=== PATIENT | female | born 1955 | race Caucasian/White ===

== ENCOUNTER 2019-02-14 09:31 | Emergency (ER) | payer BC ==
--- NOTE | 2019-02-14 11:42 | UC ---
Skin Complaint HPI - HPI Summary HPI Summary: Pt presents to for evaluatin of cellulilitis right popliteal fossa. pt states 1 week had an area of itching - thought was bug bite. PT states was very itchy. Pt states progressively became red. Mild pain. Pt used hydrocortisone cream - little improvement. pt does not have a pcp. Pt is on no meds. no tobacco. 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 No meds - History of Current Complaint Chief Complaint: UCSkin Time Seen by Provider: 02/14/19 11:34 Stated Complaint: SKIN ISSUE Hx Obtained From: Patient Pain Intensity: 0 - Allergy/Home Medications Allergies/Adverse Reactions: Allergies Allergy/AdvReac Type Severity Reaction Status Date / Time No Known Allergies Allergy Verified 02/14/19 11:55 Home Medications: Home Medications Calcium Carbonate [Calcium] 1 tab PO DAILY 02/14/19 [History Confirmed 02/14/19] Multivitamin [Multivitamins] 1 tab PO DAILY 02/14/19 [History Confirmed 02/14/19 ] PMH/Surg Hx/FS Hx/Imm Hx Previously Healthy: Yes - no pcp - no known hx - Surgical History Surgical History: Yes Surgery Procedure, Year, and Place: cyst removed - Family History Known Family History: Positive: Non-Contributory - Social History Occupation: Employed Full-time Lives: With Family Alcohol Use: Occasionally Substance Use Type: None Smoking Status (MU): Heavy Every Day Tobacco Smoker Review of Systems All Other Systems Reviewed And Are Negative: Yes Skin: Positive: Other - right popliteal fossa Is Patient Immunocompromised?: No Physical Exam - Summary Physical Exam Summary: Vital Signs Reviewed: Yes A+Ox3, anxious - reports disliking "all doctors and medical places" Eyes: Conjunctiva Clear, ABBEY. EOM intact and full ENT: Hearing grossly normal TM x 2 clear, turbinates mmoist, uvula midline, no exudate, no erythema Neck: Positive: Supple Respiratory: Positive: No respiratory distress, No accessory muscle use + CTA throughout no w/r Cardiovascular: RRR, tachycardia 101 on exam, nl s1, s2 no m/r CBT <2 sec abd soft + BS nt/nd no guarding, no distension Musculoskeletal Exam: SPRING x 4 without difficulty Strength Intact, ROM Intact Neurological: Positive: Alert, + sensation throughout Psychological: Positive: Normal Response To examiner Skin: Positive: right popliteal fossa pt with 3x4cm area of erythema, warmth. skin intact. well demarcated. mild TTP lateral margin indurated no fluctucance Triage Information Reviewed: Yes Vital Signs: Initial Vital Signs Temp 98 F 02/14/19 10:58 Pulse 120 02/14/19 10:58 Resp 18 02/14/19 10:58 BP 162/101 02/14/19 10:58 Pulse Ox 100 02/14/19 10:58 Re-Evaluation - Re-Evaluation First Eval Comment: reviewed ultrasound with pt. HR improved <100. reviewed BP with pt - provided physician referral center contact altough pt declined asssistance with PCP. strict return precuations. doxy. decliend work note Course/Dx - Course Course Of Treatment: pt presents for evaluation of cellulitis right popliteal fossa progressive x 1 week Pt anxious at time of eval - states complete dislike of medical centers Pt does not have a PCP - refuses offers for asisstance with follow-up will check ultrasound as lateral aspect indurated anticipate doxy pt agreement with plan and agree to wait for US but states "I really need to get out of here soon" comfort measures offered, pt declined - Diagnoses Provider Diagnosis: Cellulitis Discharge ED - Sign-Out/Discharge Documenting (check all that apply): Patient Departure All imaging exams completed and their final reports reviewed: No Studies - Discharge Plan Condition: Stable Disposition: HOME Prescriptions: DOXYcycline CAP(*) [DOXYcycline 100MG CAP(*)] 100 mg PO BID #20 cap Patient Education Materials: Cellulitis (ED) [place] [facility] [facility] [Outside] No Primary Care Phys,NOPCP [Primary Care Provider] - Additional Instructions: - take antibiotics 2 times a day as prescribed - keep wound cover and protected under your clothing - it is recommended you use the non-stick dressing - monitor your wound for worsening infection - increased reddness, red streaking , pain, fever, chills - if there is concern for increased infection you should go immediately to the emergency department - you have been given the contact information for the physician referral center - okay to call for assistance with establishing with a primary care doctor - Billing Disposition and Condition Condition: STABLE Disposition: Home
== END 2019-02-14 13:11 | disposition home or self-care (01) ==
LOC: UCEAST 09:31
DX: L03.115 Cellulitis of right lower limb (principal); F17.290 Nicotine dependence, other tobacco product, uncomplicated
CPT/HCPCS: 99202; G0463

== ENCOUNTER 2020-12-19 01:54 | Inpatient (IN) ==
[2020-12-19] MEDS ORDERED: LORazepam 2 mg VIAL 1 ml IV PUSH ONE (02:41)
[2020-12-19] MEDS ORDERED: Lorazepam PYXIS KEY PRN ×2 (02:41→14:06)
[2020-12-19] MEDS ORDERED: LORazepam 2 mg VIAL 1 ml ONE (02:41)
[2020-12-19 02:48] LABS: Hematocrit 38 % (35-47); Hemoglobin 13.1 g/dL (12.0-16.0); Mean Corpuscular HGB Conc 35 g/dL (31-36); Mean Corpuscular Hemoglobin 34 pg (27-31); Mean Corpuscular Volume 99 fL (80-97); Mean Platelet Volume 7.8 fL (7.4-10.4); Platelet Count 148 10^3/uL (150-450); Red Cell Distribution Width 13 % (10-15); White Blood Count 16.2 10^3/uL (3.5-10.8)
[2020-12-19 03:08] LABS: ALT 93 U/L (7-52); AST 89 U/L (13-39); Albumin 3.4 g/dL (3.2-5.2); Albumin/Globulin Ratio 1.2 (1-3); Alkaline Phosphatase 102 U/L (35-149); Blood Urea Nitrogen 15 mg/dL (6-24); C Reactive Protein 343.59 mg/L (<8.01); CO2 Carbon Dioxide 15 mmol/L (22-32); Calcium 6.5 mg/dL (8.6-10.3); Chloride 82 mmol/L (101-111); EGFR African American 98.4 (>60); EGFR Non-African American 81.3 (>60); Globulin 2.8 g/dL (2-4); Glucose 338 mg/dL (70-100); Lipase 362 U/L (11.0-82.0); Potassium 4.3 mmol/L (3.5-5.0); Total Protein 6.2 g/dL (6.4-8.9)
[2020-12-19 03:15] LABS: ABS Basophils 0.1 10^3/ul (0-0.2); ABS Lymphocytes 0.4 10^3/ul (1.0-4.8); ABS Neutrophils 14.7 10^3/ul (1.5-7.7); Lymphocyte % 2.5 %; Nucleated Red Blood Cells % 0.1
[2020-12-19 03:19] LABS: Anion Gap 13 mmol/L (2-11); Sodium 110 mmol/L (135-145); Troponin I 0.03 ng/mL (<0.03)
[2020-12-19] MEDS ORDERED: NS 0.9% 1000 ml BAG 2,000 ML IV ONE (03:22)
[2020-12-19 03:37] LABS: Rapid COVID-19 Molecular Undetected (Undetected)
[2020-12-19 03:48] LABS: Alcohol, S 198 mg/dL (<13)
[2020-12-19] MEDS ORDERED: Iohexol 300 (CONTRAST) 10 ML SDV IV ONE (05:50)
[2020-12-19] MEDS ORDERED: Piperacillin/Tazobac ADVAN 3.375 GM in NS 0.9% 100 ml BAG 100 ML IVPB ONE (07:42)
[2020-12-19 08:47] LABS: Blood Urea Nitrogen 16 mg/dL (6-24); CO2 Carbon Dioxide 15 mmol/L (22-32); Chloride 84 mmol/L (101-111); EGFR African American 112.7 (>60); EGFR Non-African American 93.1 (>60); Glucose 278 mg/dL (70-100)
[2020-12-19] MEDS ORDERED: Thiamine 100 MG/ML 2 ml VIAL (200 mg) IM ONE (08:53)
[2020-12-19 09:08] LABS: Anion Gap 13 mmol/L (2-11); Sodium 112 mmol/L (135-145)
[2020-12-19 09:22] LABS: Cholesterol 110 mg/dL; HDL Cholesterol 53.2 mg/dL; LDL Cholesterol 32 mg/dL; Triglycerides 124 mg/dL
[2020-12-19 09:35] LABS: Magnesium 2.2 mg/dL (1.9-2.7)
[2020-12-19 09:45] LABS: Troponin I 0.15 ng/mL (<0.03)
[2020-12-19] MEDS ORDERED: Levalbuterol HFA INHALER MDI INH SCH (10:00)
[2020-12-19] MEDS: Nicotine PATCH 21 MG/24 HR PATCH TRANSDERM SCH (10:13)
[2020-12-19] MEDS: Enoxaparin 40 MG/0.4 ML SYR SUBCUT SCH (10:14)
[2020-12-19] MEDS ORDERED: Levalbuterol HFA INHALER MDI INH PRN (10:46)
[2020-12-19] MEDS: Lactated Ringers 1000 ml BAG 1,000 ML IV SCH (11:21)
[2020-12-19] MEDS: Multivitamins/Minerals TAB PO SCH (11:54)
[2020-12-19] MEDS ORDERED: Calcium Gluconate 2 GM in NS 0.9% 100 ml BAG 100 ML IV ONE (11:54)
[2020-12-19] MEDS: Thiamine 100 MG/ML 2 ml VIAL 250 MG in NS 0.9% 100 ml BAG 100 ML IV SCH (12:49)
[2020-12-19 13:14] LABS: Blood Urea Nitrogen 17 mg/dL (6-24); CO2 Carbon Dioxide 20 mmol/L (22-32); Chloride 84 mmol/L (101-111); EGFR African American 103.3 (>60); EGFR Non-African American 85.4 (>60); Glucose 246 mg/dL (70-100); Magnesium 2.2 mg/dL (1.9-2.7); Phosphorus 1.5 mg/dL (2.5-5.0); Potassium 3.9 mmol/L (3.5-5.0)
[2020-12-19 13:16] LABS: Anion Gap 11 mmol/L (2-11); Calcium 6.1 mg/dL (8.6-10.3); Sodium 115 mmol/L (135-145); Troponin I 0.07 ng/mL (<0.03)
[2020-12-19] MEDS ORDERED: Potassium Phosphate IV 15 MMOLE in NS 0.9% 250 ml 250 ML IVPB ONE (13:18)
[2020-12-19] MEDS ORDERED: D5W 500 ml BAG 500 ML IV SCH ×2 (14:00→19:00)
[2020-12-19] MEDS ORDERED: Heparin 5000 UNITS/ML 1 mL VIAL SUBCUT SCH (14:00)
[2020-12-19] MEDS ORDERED: LORazepam 2 mg VIAL 1 ml IV PUSH PRN (14:06)
[2020-12-19 17:57] LABS: CO2 Carbon Dioxide 16 mmol/L (22-32); Chloride 85 mmol/L (101-111); Magnesium 2.1 mg/dL (1.9-2.7)
[2020-12-19] MEDS ORDERED: LORazepam 2 mg VIAL 1 ml IV PUSH SCH (18:00)
[2020-12-19 18:01] LABS: INR 1.22 (0.86-1.15)
[2020-12-19 18:02] LABS: Blood Urea Nitrogen 16 mg/dL (6-24); EGFR African American 140.1 (>60); EGFR Non-African American 115.8 (>60); Glucose 235 mg/dL (70-100)
[2020-12-19 18:17] LABS: Anion Gap 17 mmol/L (2-11); Calcium 6.3 mg/dL (8.6-10.3); Sodium 118 mmol/L (135-145)
[2020-12-19] MEDS ORDERED: Lactated Ringers 1000 ml BAG 1,000 ML IV SCH (19:00)
[2020-12-19 19:08] LABS: PCO2 Arterial 41 mmHg (35-45); PO2 Arterial 70 mmHg (80-100)
[2020-12-19 19:19] LABS: PCO2 Arterial 32 mmHg (35-45); PO2 Arterial 89 mmHg (80-100)
[2020-12-19] MEDS: LORazepam 2 mg VIAL 1 ml IV PUSH SCH (19:40)
[2020-12-19 20:36] LABS: TSH Ultra Thyroid Stim Horm 1.02 mcIU/mL (0.34-5.60)
[2020-12-19] MEDS ORDERED: Dexmedetomidine 1,000 MCG in NS 0.9% 250 ml 240 ML IV SCH (21:00)
[2020-12-19 21:28] LABS: Magnesium 2.1 mg/dL (1.9-2.7); Phosphorus 1.7 mg/dL (2.5-5.0); Potassium Redraw 4.5 mmol/L (3.5-5.0)
[2020-12-19 23:43] LABS: Urine Appearance Cloudy; Urine Bilirubin Negative (Negative); Urine Blood 3+ (Negative); Urine Color Yellow; Urine Glucose 3+(>=500 mg/dL) (Negative); Urine Ketones 1+ (Negative); Urine Nitrite Negative (Negative); Urine Protein 2+(100 mg/dL) (Negative); Urine Specific Gravity 1.025 (1.002-1.030); Urine Urobilinogen Negative (Negative)
[2020-12-19 23:47] LABS: Urine Bacteria Absent (Absent); Urine Red Blood Cell 3+(>10/hpf) (Absent); Urine White Blood Cell Trace(0-5/hpf) (Absent)
[2020-12-19 23:48] LABS: Urine Creatinine Concentration 46.22 mg/dL; Urine Sodium Concentration < 18 mmol/L
[2020-12-19 23:50] LABS: Urine Benzodiazepine Screen None Detected (None Detect); Urine Cannabinoids Screen None Detected (None Detect); Urine Opiates Screen None Detected (None Detect)
[2020-12-20] MEDS ORDERED: Insulin GLARGINE 100 un/ml 10 ml VIAL SUBCUT ONE (00:28)
[2020-12-20 01:51] LABS: Hematocrit 29 % (35-47); Hemoglobin 10.1 g/dL (12.0-16.0); Mean Corpuscular HGB Conc 35 g/dL (31-36); Mean Corpuscular Hemoglobin 35 pg (27-31); Mean Corpuscular Volume 99 fL (80-97); Mean Platelet Volume 7.6 fL (7.4-10.4); Platelet Count 135 10^3/uL (150-450); Red Blood Count 2.93 10^6 /uL (3.70-4.87); Red Cell Distribution Width 13 % (10-15); White Blood Count 10.1 10^3/uL (3.5-10.8)
[2020-12-20 01:55] LABS: INR 1.25 (0.86-1.15)
[2020-12-20 02:09] LABS: Albumin 2.8 g/dL (3.2-5.2); Albumin/Globulin Ratio 1.2 (1-3); Direct Bilirubin 0.4 mg/dL (0.03-0.18); EGFR African American 143.2 (>60); EGFR Non-African American 118.3 (>60); Globulin 2.3 g/dL (2-4); Indirect Bilirubin 0.4 mg/dL (0.3-1.0); Magnesium 2.1 mg/dL (1.9-2.7); Potassium 4.1 mmol/L (3.5-5.0); Total Bilirubin 0.8 mg/dL (0.2-1.0); Total Protein 5.1 g/dL (6.4-8.9)
[2020-12-20 02:35] LABS: Calcium 5.7 mg/dL (8.6-10.3)
[2020-12-20] MEDS: LORazepam 2 mg VIAL 1 ml IV PUSH SCH (03:40)
[2020-12-20] MEDS ORDERED: LORazepam 2 mg VIAL 1 ml IM SCH (04:00)
[2020-12-20] MEDS: Lactated Ringers 1000 ml BAG 1,000 ML IV SCH (04:13)
[2020-12-20] MEDS ORDERED: Dextrose 50% Syringe 50 ml 25 GM/50 ML SYRINGE IV PUSH PRN (06:16)
[2020-12-20] MEDS: Multivitamins/Minerals TAB PO SCH (07:13)
[2020-12-20] MEDS: Enoxaparin 40 MG/0.4 ML SYR SUBCUT SCH (07:17)
[2020-12-20] MEDS: Nicotine PATCH 21 MG/24 HR PATCH TRANSDERM SCH (07:17)
[2020-12-20 07:40] LABS: EGFR African American 169.2 (>60); EGFR Non-African American 139.8 (>60); Potassium 3.9 mmol/L (3.5-5.0)
[2020-12-20 07:42] LABS: Calcium 5.7 mg/dL (8.6-10.3)
[2020-12-20] MEDS ORDERED: Lactated Ringers 1000 ml BAG 1,000 ML IV SCH (07:44)
[2020-12-20 10:52] LABS: C Reactive Protein 275.52 mg/L (<8.01)
[2020-12-20] MEDS: Thiamine 100 MG/ML 2 ml VIAL 250 MG in NS 0.9% 100 ml BAG 100 ML IV SCH (15:49)
[2020-12-20] MEDS ORDERED: Buffered Lidocaine 1% SYRIN 1 ml INTRADERM ONE (16:39)
[2020-12-20 17:24] LABS: EGFR African American 153.4 (>60); EGFR Non-African American 126.7 (>60); Potassium 3.8 mmol/L (3.5-5.0)
[2020-12-20 17:26] LABS: Calcium 5.8 mg/dL (8.6-10.3)
[2020-12-20] MEDS ORDERED: D5W 1000 ml BAG 1,000 ML IV SCH (18:00)
[2020-12-20 18:39] LABS: EGFR African American 157.1 (>60); EGFR Non-African American 129.8 (>60)
[2020-12-20 18:41] LABS: Calcium 5.5 mg/dL (8.6-10.3)
[2020-12-20 23:18] LABS: EGFR African American 153.4 (>60); EGFR Non-African American 126.7 (>60); Potassium 3.4 mmol/L (3.5-5.0)
[2020-12-20 23:47] LABS: Calcium 5.7 mg/dL (8.6-10.3)
[2020-12-21] MEDS: KCL 20 MEQ/100 ML IVPREMIX 20 MEQ/100 ML BAG IV SCH ×2 (01:01→04:32)
[2020-12-21] MEDS: LORazepam 2 mg VIAL 1 ml IV PUSH SCH ×4 (03:50→22:49)
[2020-12-21] MEDS ORDERED: Albuterol 2.5mg/3 ml (0.083%) NEB.SOLN INH ONE (05:45)
[2020-12-21 05:52] LABS: Hematocrit 34 % (35-47); Hemoglobin 11.6 g/dL (12.0-16.0); Mean Corpuscular HGB Conc 34 g/dL (31-36); Mean Corpuscular Hemoglobin 34 pg (27-31); Mean Corpuscular Volume 100 fL (80-97); Mean Platelet Volume 7.5 fL (7.4-10.4); Platelet Count 159 10^3/uL (150-450); Red Blood Count 3.45 10^6 /uL (3.70-4.87); Red Cell Distribution Width 13 % (10-15); White Blood Count 13.3 10^3/uL (3.5-10.8)
[2020-12-21 06:11] LABS: PCO2 Arterial 48 mmHg (35-45); PO2 Arterial 99 mmHg (80-100)
[2020-12-21 06:15] LABS: Magnesium 2.3 mg/dL (1.9-2.7)
[2020-12-21] MEDS: Enoxaparin 40 MG/0.4 ML SYR SUBCUT SCH (08:12)
[2020-12-21] MEDS: Nicotine PATCH 21 MG/24 HR PATCH TRANSDERM SCH (08:12)
[2020-12-21 08:27] LABS: Albumin 2.9 g/dL (3.2-5.2); Potassium 3.8 mmol/L (3.5-5.0); Total Bilirubin 0.8 mg/dL (0.2-1.0)
[2020-12-21 08:33] LABS: Albumin/Globulin Ratio 1.2 (1-3); EGFR African American 173.6 (>60); EGFR Non-African American 143.5 (>60); Globulin 2.5 g/dL (2-4); Total Protein 5.4 g/dL (6.4-8.9)
[2020-12-21] MEDS ORDERED: Lactated Ringers 1000 ml BAG 1,000 ML IV ONE ×2 (08:43→09:34)
[2020-12-21 09:11] LABS: Calcium 5.9 mg/dL (8.6-10.3)
[2020-12-21] MEDS ORDERED: Potassium Phosphate IV 15 MMOLE in NS 0.9% 250 ml 250 ML IVPB ONE (10:30)
[2020-12-21] MEDS: Thiamine 100 MG/ML 2 ml VIAL 250 MG in NS 0.9% 100 ml BAG 100 ML IV SCH (12:59)
[2020-12-21 13:01] LABS: EGFR African American 199.6 (>60); EGFR Non-African American 164.9 (>60); Potassium 3.5 mmol/L (3.5-5.0)
[2020-12-21 13:34] LABS: Calcium 5.6 mg/dL (8.6-10.3)
[2020-12-21] MEDS ORDERED: Lactated Ringers 1000 ml BAG 1,000 ML IV SCH ×2 (16:00→18:41)
[2020-12-21 18:37] LABS: EGFR African American 212.1 (>60); EGFR Non-African American 175.3 (>60); Potassium 3.5 mmol/L (3.5-5.0)
[2020-12-21 19:04] LABS: Calcium 5.6 mg/dL (8.6-10.3)
[2020-12-21] MEDS ORDERED: D5W 500 ml BAG 500 ML IV SCH (21:00)
[2020-12-22] MEDS: LORazepam 2 mg VIAL 1 ml IV PUSH SCH (00:30)
[2020-12-22] MEDS ORDERED: D5W 500 ml BAG 500 ML IV ONE (01:11)
[2020-12-22 02:02] LABS: Blood Urea Nitrogen 8 mg/dL (6-24); CO2 Carbon Dioxide 24 mmol/L (22-32); Chloride 95 mmol/L (101-111); EGFR African American 233.8 (>60); EGFR Non-African American 193.2 (>60); Glucose 122 mg/dL (70-100); Sodium 129 mmol/L (135-145)
[2020-12-22 02:15] LABS: Calcium 5.5 mg/dL (8.6-10.3)
[2020-12-22 02:16] LABS: Anion Gap 10 mmol/L (2-11)
[2020-12-22 03:07] LABS: Phosphorus 1.1 mg/dL (2.5-5.0); Potassium Redraw 2.9 mmol/L (3.5-5.0)
[2020-12-22 04:17] LABS: Hematocrit 32 % (35-47); Hemoglobin 10.6 g/dL (12.0-16.0); Mean Corpuscular HGB Conc 33 g/dL (31-36); Mean Corpuscular Hemoglobin 34 pg (27-31); Mean Corpuscular Volume 101 fL (80-97); Mean Platelet Volume 6.9 fL (7.4-10.4); Platelet Count 231 10^3/uL (150-450); Red Blood Count 3.16 10^6 /uL (3.70-4.87); Red Cell Distribution Width 14 % (10-15); White Blood Count 16.7 10^3/uL (3.5-10.8)
[2020-12-22] MEDS ORDERED: Potassium Phosphate IV 20 MMOLE in NS 0.9% 250 ml 250 ML IVPB ONE (04:30)
[2020-12-22 05:35] LABS: Magnesium 2.2 mg/dL (1.9-2.7); Phosphorus 1.1 mg/dL (2.5-5.0)
[2020-12-22] MEDS: KCL 20 MEQ/100 ML IVPREMIX 20 MEQ/100 ML BAG IV SCH ×3 (06:23→21:45)
[2020-12-22] MEDS: Nicotine PATCH 21 MG/24 HR PATCH TRANSDERM SCH (08:52)
[2020-12-22] MEDS: Enoxaparin 40 MG/0.4 ML SYR SUBCUT SCH (08:52)
[2020-12-22 10:32] LABS: EGFR African American 199.6 (>60); EGFR Non-African American 164.9 (>60); Potassium 3.8 mmol/L (3.5-5.0)
[2020-12-22 10:48] LABS: Calcium 5.6 mg/dL (8.6-10.3)
[2020-12-22 14:38] LABS: C Reactive Protein 186.74 mg/L (<8.01)
[2020-12-22 17:49] LABS: EGFR African American 218.9 (>60); EGFR Non-African American 180.9 (>60); Potassium 3.6 mmol/L (3.5-5.0)
[2020-12-22 18:08] LABS: Calcium 5.6 mg/dL (8.6-10.3)
[2020-12-22] MEDS: Thiamine 100 MG/ML 2 ml VIAL 100 MG in NS 0.9% 50 ML 50 ML IV SCH (23:32)
[2020-12-23] MEDS: KCL 20 MEQ/100 ML IVPREMIX 20 MEQ/100 ML BAG IV SCH (00:33)
[2020-12-23 05:21] LABS: Hematocrit 29 % (35-47); Hemoglobin 9.6 g/dL (12.0-16.0); Mean Corpuscular HGB Conc 34 g/dL (31-36); Mean Corpuscular Hemoglobin 34 pg (27-31); Mean Corpuscular Volume 101 fL (80-97); Mean Platelet Volume 6.9 fL (7.4-10.4); Platelet Count 251 10^3/uL (150-450); Red Blood Count 2.85 10^6 /uL (3.70-4.87); Red Cell Distribution Width 14 % (10-15); White Blood Count 18.7 10^3/uL (3.5-10.8)
[2020-12-23 05:44] LABS: Albumin 2.3 g/dL (3.2-5.2); Albumin/Globulin Ratio 1.2 (1-3); EGFR African American 233.8 (>60); EGFR Non-African American 193.2 (>60); Potassium 3.8 mmol/L (3.5-5.0); Total Bilirubin 0.5 mg/dL (0.2-1.0); Total Protein 4.3 g/dL (6.4-8.9)
[2020-12-23 06:08] LABS: Calcium 5.7 mg/dL (8.6-10.3)
[2020-12-23] MEDS ORDERED: Potassium Phosphate IV 15 MMOLE in NS 0.9% 250 ml 250 ML IVPB ONE (06:47)
[2020-12-23 06:52] LABS: Direct Bilirubin 0.3 mg/dL (0.03-0.18); Indirect Bilirubin 0.2 mg/dL (0.3-1.0)
[2020-12-23] MEDS: Enoxaparin 40 MG/0.4 ML SYR SUBCUT SCH (07:56)
[2020-12-23] MEDS: Nicotine PATCH 21 MG/24 HR PATCH TRANSDERM SCH (07:56)
[2020-12-23] MEDS: Lactated Ringers 1000 ml BAG 1,000 ML IV SCH ×2 (10:40→20:43)
[2020-12-23] MEDS ORDERED: Iohexol 300 (CONTRAST) 10 ML SDV IV ONE (11:31)
[2020-12-23] MEDS ORDERED: Calcium Gluconate 2 GM in NS 0.9% 100 ml BAG 100 ML IV ONE (20:10)
[2020-12-23 21:22] LABS: EGFR African American 212.1 (>60); EGFR Non-African American 175.3 (>60); Potassium 3.4 mmol/L (3.5-5.0)
[2020-12-23 21:48] LABS: Calcium 5.8 mg/dL (8.6-10.3)
[2020-12-23] MEDS: Thiamine 100 MG/ML 2 ml VIAL 100 MG in NS 0.9% 50 ML 50 ML IV SCH (22:29)
[2020-12-23 23:29] LABS: Phosphorus 1.3 mg/dL (2.5-5.0)
[2020-12-24] MEDS ORDERED: Potassium Phosphate IV 15 MMOLE in NS 0.9% 250 ml 250 ML IVPB ONE ×2 (02:35→09:42)
[2020-12-24] MEDS: Lactated Ringers 1000 ml BAG 1,000 ML IV SCH ×3 (05:02→23:02)
[2020-12-24 06:45] LABS: Hematocrit 29 % (35-47); Hemoglobin 9.8 g/dL (12.0-16.0); Mean Corpuscular HGB Conc 34 g/dL (31-36); Mean Corpuscular Hemoglobin 34 pg (27-31); Mean Corpuscular Volume 100 fL (80-97); Mean Platelet Volume 6.9 fL (7.4-10.4); Platelet Count 264 10^3/uL (150-450); Red Blood Count 2.87 10^6 /uL (3.70-4.87); Red Cell Distribution Width 15 % (10-15); White Blood Count 20.8 10^3/uL (3.5-10.8)
[2020-12-24 06:55] LABS: Magnesium 2.1 mg/dL (1.9-2.7); Phosphorus 1.6 mg/dL (2.5-5.0)
[2020-12-24 07:24] LABS: ABS Lymphocytes 0.8 10^3/ul (1.0-4.8); ABS Monocytes 1.8 10^3/ul (0-0.8); ABS Neutrophils 18.1 10^3/ul (1.5-7.7); ABS Nucleated RBC 0.3 10^3/ul; Nucleated Red Blood Cells % 1.5
[2020-12-24 07:27] LABS: Polychromasia 1+; Toxic Granulation 1+
[2020-12-24 08:49] LABS: Albumin 2.3 g/dL (3.2-5.2); Direct Bilirubin 0.3 mg/dL (0.03-0.18); Globulin 2.2 g/dL (2-4); Indirect Bilirubin 0.2 mg/dL (0.3-1.0); Total Bilirubin 0.5 mg/dL (0.2-1.0); Total Protein 4.5 g/dL (6.4-8.9)
[2020-12-24] MEDS: Enoxaparin 40 MG/0.4 ML SYR SUBCUT SCH (08:57)
[2020-12-24] MEDS: Nicotine PATCH 21 MG/24 HR PATCH TRANSDERM SCH (08:58)
[2020-12-24 09:15] LABS: EGFR African American 233.8 (>60); EGFR Non-African American 193.2 (>60); Potassium 3.5 mmol/L (3.5-5.0)
[2020-12-24 09:41] LABS: Calcium 6.2 mg/dL (8.6-10.3)
[2020-12-24] MEDS: Thiamine 100 MG/ML 2 ml VIAL 100 MG in NS 0.9% 50 ML 50 ML IV SCH (21:16)
[2020-12-25 05:08] LABS: Hematocrit 30 % (35-47); Hemoglobin 10.1 g/dL (12.0-16.0); Mean Corpuscular HGB Conc 34 g/dL (31-36); Mean Corpuscular Hemoglobin 34 pg (27-31); Mean Corpuscular Volume 101 fL (80-97); Mean Platelet Volume 6.8 fL (7.4-10.4); Platelet Count 272 10^3/uL (150-450); Red Blood Count 2.97 10^6 /uL (3.70-4.87); Red Cell Distribution Width 14 % (10-15); White Blood Count 19.6 10^3/uL (3.5-10.8)
[2020-12-25 05:26] LABS: Calcium 6.5 mg/dL (8.6-10.3); Magnesium 2.1 mg/dL (1.9-2.7); Phosphorus 1.5 mg/dL (2.5-5.0); Potassium 3.2 mmol/L (3.5-5.0)
[2020-12-25] MEDS ORDERED: Potassium Phosphate IV 15 MMOLE in NS 0.9% 250 ml 250 ML IVPB ONE (05:42)
[2020-12-25 06:28] LABS: ABS Basophils 0.1 10^3/ul (0-0.2); ABS Lymphocytes 0.7 10^3/ul (1.0-4.8); ABS Monocytes 1.4 10^3/ul (0-0.8); ABS Neutrophils 17.4 10^3/ul (1.5-7.7); ABS Nucleated RBC 0.2 10^3/ul; Basophilic Stippling 1+; Eosinophil % 0.1 %; Lymphocyte % 3.4 %; Macrocytosis 2+; Nucleated Red Blood Cells % 0.9; Polychromasia 1+
[2020-12-25] MEDS: Nicotine PATCH 21 MG/24 HR PATCH TRANSDERM SCH (07:47)
[2020-12-25] MEDS: Enoxaparin 40 MG/0.4 ML SYR SUBCUT SCH (07:48)
[2020-12-25] MEDS: Lactated Ringers 1000 ml BAG 1,000 ML IV SCH (09:21)
[2020-12-25] MEDS: Potassium Chlor 20 meq TAB.ER PO SCH (11:03)
[2020-12-25] MEDS ORDERED: Furosemide 20 mg/2 ml IV VIAL IV ONE ×2 (11:44→20:45)
[2020-12-25] MEDS ORDERED: Lorazepam PYXIS KEY PRN (14:27)
[2020-12-25] MEDS ORDERED: LORazepam 2 mg VIAL 1 ml ONE (14:32)
[2020-12-25] MEDS: LORazepam 2 mg VIAL 1 ml IV PUSH PRN ×2 (14:38→23:40)
[2020-12-25] MEDS ORDERED: LORazepam 2 mg VIAL 1 ml IV PUSH ONE (14:58)
[2020-12-25] MEDS ORDERED: TPN 24 HR with D10W 1000 ml BAG 1,000 ML, Amino Acid Infusion 10% 850 ML, Sterile Water... IV SCH (17:00)
[2020-12-25] MEDS: TPN 24 HR with D10W 1000 ml BAG 1,000 ML, Amino Acid Infusion 10% 850 ML, Sterile Water... IV SCH (17:45)
[2020-12-25 19:10] LABS: Body Fluid Source Pleural Fluid
[2020-12-25 19:36] LABS: Body Fluid WBC 3708 /mcL
[2020-12-25 19:37] LABS: Body Fluid Appearance Cloudy; Body Fluid Color Pink
[2020-12-25 19:55] LABS: Body Fluid Mono 6 %; Body Fluid Total Cells Counted 200
[2020-12-25] MEDS: Thiamine 100 MG/ML 2 ml VIAL 100 MG in NS 0.9% 50 ML 50 ML IV SCH (22:49)
[2020-12-26 06:21] LABS: Hematocrit 31 % (35-47); Hemoglobin 10.4 g/dL (12.0-16.0); Mean Corpuscular HGB Conc 34 g/dL (31-36); Mean Corpuscular Hemoglobin 34 pg (27-31); Mean Corpuscular Volume 103 fL (80-97); Mean Platelet Volume 7.2 fL (7.4-10.4); Platelet Count 263 10^3/uL (150-450); Red Blood Count 3.01 10^6 /uL (3.70-4.87); Red Cell Distribution Width 15 % (10-15); White Blood Count 19.8 10^3/uL (3.5-10.8)
[2020-12-26 06:41] LABS: Calcium 7.3 mg/dL (8.6-10.3); EGFR African American 205.7 (>60); Magnesium 2.2 mg/dL (1.9-2.7); Potassium 3.8 mmol/L (3.5-5.0)
[2020-12-26] MEDS: Nicotine PATCH 21 MG/24 HR PATCH TRANSDERM SCH ×2 (06:44→07:37)
[2020-12-26] MEDS ORDERED: Potassium Phosphate IV 15 MMOLE in NS 0.9% 250 ml 250 ML IVPB ONE (08:10)
[2020-12-26] MEDS: Enoxaparin 40 MG/0.4 ML SYR SUBCUT SCH (08:41)
[2020-12-26] MEDS ORDERED: Furosemide 40 mg/4 ml IV VIAL IV ONE (09:27)
[2020-12-26] MEDS ORDERED: Morphine ER 15 mg TAB ** extended release PO ONE (10:22)
[2020-12-26] MEDS ORDERED: Nicotine Lozenge mini 4 MG LOZNG.MINI MT PRN (10:23)
[2020-12-26] MEDS: Morphine 2 MG/ML SYRINGE IV PRN (15:46)
[2020-12-26] MEDS ORDERED: Furosemide 20 mg/2 ml IV VIAL IV SLOW PU ONE (17:14)
[2020-12-26] MEDS ORDERED: Furosemide 40 mg/4 ml IV VIAL IV SLOW PU ONE (17:15)
[2020-12-26] MEDS: TPN 24 HR with D10W 1000 ml BAG 1,000 ML, Amino Acid Infusion 10% 850 ML, Sterile Water... IV SCH (17:50)
[2020-12-26] MEDS ORDERED: Insulin GLARGINE 100 un/ml 10 ml VIAL SUBCUT SCH (21:00)
[2020-12-27] MEDS: Thiamine 100 MG/ML 2 ml VIAL 100 MG in NS 0.9% 50 ML 50 ML IV SCH ×2 (00:35→21:26)
[2020-12-27] MEDS ORDERED: Lorazepam PYXIS KEY ONE ×2 (05:09→15:14)
[2020-12-27] MEDS: LORazepam 2 mg VIAL 1 ml IV PUSH PRN ×2 (05:14→15:18)
[2020-12-27] MEDS: Morphine 2 MG/ML SYRINGE IV PRN ×2 (05:19→16:10)
[2020-12-27 05:22] LABS: Hematocrit 30 % (35-47); Hemoglobin 9.5 g/dL (12.0-16.0); Mean Corpuscular HGB Conc 32 g/dL (31-36); Mean Corpuscular Hemoglobin 33 pg (27-31); Mean Corpuscular Volume 104 fL (80-97); Mean Platelet Volume 7.2 fL (7.4-10.4); Platelet Count 243 10^3/uL (150-450); Red Blood Count 2.87 10^6 /uL (3.70-4.87); Red Cell Distribution Width 15 % (10-15); White Blood Count 16.6 10^3/uL (3.5-10.8)
[2020-12-27 05:36] LABS: Calcium 7.5 mg/dL (8.6-10.3); EGFR African American 260.1 (>60); Magnesium 2.2 mg/dL (1.9-2.7); Phosphorus 1.2 mg/dL (2.5-5.0); Potassium 3.4 mmol/L (3.5-5.0)
[2020-12-27] MEDS ORDERED: Potassium Phosphate IV 15 MMOLE in NS 0.9% 250 ml 250 ML IVPB ONE (08:00)
[2020-12-27] MEDS: Potassium Chlor 20 meq TAB.ER PO ONE ×2 (09:22→09:27)
[2020-12-27] MEDS: Enoxaparin 40 MG/0.4 ML SYR SUBCUT SCH (09:22)
[2020-12-27] MEDS: Nicotine PATCH 21 MG/24 HR PATCH TRANSDERM SCH (09:23)
[2020-12-27] MEDS ORDERED: acetaZOLAMIDE IV 500 MG in NS 0.9% 50 ML 50 ML IVPB SCH (10:00)
[2020-12-27] MEDS ORDERED: TPN 24 HR with D10W 1000 ml BAG 1,000 ML, Amino Acid Infusion 10% 850 ML, Sterile Water... IV SCH (10:00)
[2020-12-27] MEDS: KCL 20 MEQ/100 ML IVPREMIX 20 MEQ/100 ML BAG IV SCH ×2 (11:19→13:03)
[2020-12-27] MEDS ORDERED: Enoxaparin 40 MG/0.4 ML SYR SUBCUT SCH (12:00)
[2020-12-27] MEDS ORDERED: Enoxaparin 40 MG/0.4 ML SYR SUBCUT ONE (12:12)
[2020-12-27 15:58] LABS: Lactate Dehydrogenase, BF 882 U/L
[2020-12-27] MEDS: TPN 24 HR with D10W 1000 ml BAG 1,000 ML, Amino Acid Infusion 10% 850 ML, Sterile Water... IV SCH (18:09)
[2020-12-27] MEDS ORDERED: Insulin GLARGINE 100 un/ml 10 ml VIAL SUBCUT SCH (21:00)
[2020-12-27] MEDS: Enoxaparin 80 MG/0.8 ML SYR SUBCUT SCH (21:21)
[2020-12-28] MEDS ORDERED: Lorazepam PYXIS KEY ONE (02:41)
[2020-12-28] MEDS: LORazepam 2 mg VIAL 1 ml IV PUSH PRN (02:42)
[2020-12-28] MEDS: Morphine 2 MG/ML SYRINGE IV PRN ×2 (02:43→10:35)
[2020-12-28] MEDS: Nicotine PATCH 21 MG/24 HR PATCH TRANSDERM SCH (06:28)
[2020-12-28 07:37] LABS: Hematocrit 28 % (35-47); Hemoglobin 9.4 g/dL (12.0-16.0); Mean Corpuscular HGB Conc 33 g/dL (31-36); Mean Corpuscular Hemoglobin 34 pg (27-31); Mean Corpuscular Volume 103 fL (80-97); Mean Platelet Volume 7.5 fL (7.4-10.4); Platelet Count 245 10^3/uL (150-450); Red Blood Count 2.75 10^6 /uL (3.70-4.87); Red Cell Distribution Width 15 % (10-15); White Blood Count 12.5 10^3/uL (3.5-10.8)
[2020-12-28 07:47] LABS: Calcium 7.6 mg/dL (8.6-10.3); EGFR African American 270.2 (>60); EGFR Non-African American 223.3 (>60); Magnesium 2.2 mg/dL (1.9-2.7); Phosphorus 2.7 mg/dL (2.5-5.0); Potassium 3.7 mmol/L (3.5-5.0)
[2020-12-28] MEDS: Enoxaparin 80 MG/0.8 ML SYR SUBCUT SCH ×2 (08:46→21:28)
[2020-12-28] MEDS ORDERED: Furosemide 40 mg/4 ml IV VIAL IV SLOW PU ONE (09:44)
[2020-12-28 10:03] LABS: Fluid Type, Protein, Total PLEURAL; Total Protein, BF 2.1 g/dL
[2020-12-28] MEDS: TPN 24 HR with D10W 1000 ml BAG 1,000 ML, Amino Acid Infusion 10% 850 ML, Sterile Water... IV SCH (18:18)
[2020-12-28] MEDS: Insulin GLARGINE 100 un/ml 10 ml VIAL SUBCUT SCH (21:29)
[2020-12-28] MEDS: Thiamine 100 MG/ML 2 ml VIAL 100 MG in NS 0.9% 50 ML 50 ML IV SCH (21:35)
[2020-12-29] MEDS: Morphine 2 MG/ML SYRINGE IV PRN (00:59)
[2020-12-29] MEDS: Nicotine PATCH 21 MG/24 HR PATCH TRANSDERM SCH (05:57)
[2020-12-29 06:03] LABS: Hematocrit 27 % (35-47); Hemoglobin 9.3 g/dL (12.0-16.0); Mean Corpuscular HGB Conc 34 g/dL (31-36); Mean Corpuscular Hemoglobin 34 pg (27-31); Mean Corpuscular Volume 101 fL (80-97); Mean Platelet Volume 7.7 fL (7.4-10.4); Platelet Count 248 10^3/uL (150-450); Red Cell Distribution Width 15 % (10-15); White Blood Count 10.5 10^3/uL (3.5-10.8)
[2020-12-29 06:22] LABS: Calcium 7.6 mg/dL (8.6-10.3); EGFR African American 270.2 (>60); EGFR Non-African American 223.3 (>60); Magnesium 2.2 mg/dL (1.9-2.7); Phosphorus 2.7 mg/dL (2.5-5.0)
[2020-12-29] MEDS: Enoxaparin 80 MG/0.8 ML SYR SUBCUT SCH ×2 (08:15→21:56)
[2020-12-29] MEDS ORDERED: Furosemide 40 mg/4 ml IV VIAL IV ONE (10:13)
[2020-12-29] MEDS: Sodium Chloride(INHALANT) 3% 4 ML NEB.SOLN INH PRN (10:24)
[2020-12-29] MEDS: Albuterol 2.5mg/3 ml (0.083%) NEB.SOLN INH PRN (10:24)
[2020-12-29] MEDS: TPN 24 HR with D10W 1000 ml BAG 1,000 ML, Amino Acid Infusion 10% 850 ML, Sterile Water... IV SCH (18:27)
[2020-12-29] MEDS ORDERED: Senna TAB 8.6 mg TAB PO SCH (21:00)
[2020-12-29] MEDS: Insulin GLARGINE 100 un/ml 10 ml VIAL SUBCUT SCH (21:57)
[2020-12-30] MEDS: Sodium Chloride(INHALANT) 3% 4 ML NEB.SOLN INH PRN ×3 (02:16→18:21)
[2020-12-30] MEDS: Albuterol 2.5mg/3 ml (0.083%) NEB.SOLN INH PRN ×3 (02:16→18:21)
[2020-12-30] MEDS: Nicotine PATCH 21 MG/24 HR PATCH TRANSDERM SCH (05:39)
[2020-12-30] MEDS ORDERED: Lorazepam PYXIS KEY ONE ×2 (07:05→13:35)
[2020-12-30] MEDS: Enoxaparin 80 MG/0.8 ML SYR SUBCUT SCH ×2 (07:09→19:58)
[2020-12-30] MEDS: LORazepam 2 mg VIAL 1 ml IV PUSH PRN ×2 (07:09→13:40)
[2020-12-30] MEDS ORDERED: Furosemide 40 mg/4 ml IV VIAL IV ONE (08:58)
[2020-12-30 09:11] LABS: PCO2 Arterial 46 mmHg (35-45); PO2 Arterial 129 mmHg (80-100)
[2020-12-30 11:10] LABS: Hematocrit 30 % (35-47); Mean Corpuscular HGB Conc 33 g/dL (31-36); Mean Corpuscular Hemoglobin 33 pg (27-31); Mean Corpuscular Volume 101 fL (80-97); Mean Platelet Volume 8.1 fL (7.4-10.4); Platelet Count 324 10^3/uL (150-450); Red Blood Count 3.01 10^6 /uL (3.70-4.87); Red Cell Distribution Width 15 % (10-15); White Blood Count 9.4 10^3/uL (3.5-10.8)
[2020-12-30 11:27] LABS: Calcium 7.7 mg/dL (8.6-10.3); EGFR African American 226.1 (>60); EGFR Non-African American 186.9 (>60); Phosphorus 2.9 mg/dL (2.5-5.0); Potassium 3.6 mmol/L (3.5-5.0)
[2020-12-30] MEDS ORDERED: KCL 20 MEQ/100 ML IVPREMIX 20 MEQ/100 ML BAG IV ONE (12:00)
[2020-12-30] MEDS: Morphine 2 MG/ML SYRINGE IV PRN (15:31)
[2020-12-30] MEDS: TPN 24 HR with D10W 1000 ml BAG 1,000 ML, Amino Acid Infusion 10% 850 ML, Sterile Water... IV SCH (17:09)
[2020-12-30] MEDS: Insulin GLARGINE 100 un/ml 10 ml VIAL SUBCUT SCH (19:58)
[2020-12-31] MEDS: Albuterol 2.5mg/3 ml (0.083%) NEB.SOLN INH PRN ×2 (01:18→08:59)
[2020-12-31 05:10] LABS: Hematocrit 27 % (35-47); Hemoglobin 9.3 g/dL (12.0-16.0); Mean Corpuscular HGB Conc 34 g/dL (31-36); Mean Corpuscular Hemoglobin 34 pg (27-31); Mean Corpuscular Volume 100 fL (80-97); Mean Platelet Volume 8.2 fL (7.4-10.4); Platelet Count 321 10^3/uL (150-450); Red Blood Count 2.72 10^6 /uL (3.70-4.87); Red Cell Distribution Width 15 % (10-15); White Blood Count 9.3 10^3/uL (3.5-10.8)
[2020-12-31] MEDS: Nicotine PATCH 21 MG/24 HR PATCH TRANSDERM SCH (05:23)
[2020-12-31 05:26] LABS: ABS Basophils 0.1 10^3/ul (0-0.2); ABS Lymphocytes 0.9 10^3/ul (1.0-4.8); ABS Monocytes 1.5 10^3/ul (0-0.8); ABS Neutrophils 6.8 10^3/ul (1.5-7.7); ABS Nucleated RBC 0.1 10^3/ul; Eosinophil % 0.2 %; Nucleated Red Blood Cells % 0.9
[2020-12-31 05:40] LABS: ALT 38 U/L (7-52); AST 31 U/L (13-39); Albumin 2.3 g/dL (3.2-5.2); Albumin/Globulin Ratio 0.8 (1-3); Alkaline Phosphatase 127 U/L (35-149); Anion Gap 4 mmol/L (2-11); Blood Urea Nitrogen 21 mg/dL (6-24); CO2 Carbon Dioxide 29 mmol/L (22-32); Calcium 7.6 mg/dL (8.6-10.3); Chloride 104 mmol/L (101-111); EGFR African American 270.2 (>60); EGFR Non-African American 223.3 (>60); Globulin 2.8 g/dL (2-4); Glucose 190 mg/dL (70-100); Phosphorus 3.3 mg/dL (2.5-5.0); Potassium 4.1 mmol/L (3.5-5.0); Sodium 137 mmol/L (135-145); Total Protein 5.1 g/dL (6.4-8.9)
[2020-12-31] MEDS: Enoxaparin 80 MG/0.8 ML SYR SUBCUT SCH ×2 (08:45→21:11)
[2020-12-31] MEDS: Sodium Chloride(INHALANT) 3% 4 ML NEB.SOLN INH PRN (08:59)
[2020-12-31] MEDS ORDERED: Lorazepam PYXIS KEY ONE ×3 (14:44→22:51)
[2020-12-31] MEDS: LORazepam 2 mg VIAL 1 ml IV PUSH PRN ×3 (14:47→23:02)
[2020-12-31] MEDS: TPN 24 HR with D10W 1000 ml BAG 1,000 ML, Amino Acid Infusion 10% 850 ML, Sterile Water... IV SCH (17:32)
[2020-12-31] MEDS: Insulin GLARGINE 100 un/ml 10 ml VIAL SUBCUT SCH (21:11)
[2020-12-31] MEDS: Saline FLUSH-CENTRAL 10 ML SYRINGE CENT\\PICC SCH (23:02)
[2021-01-01 04:53] LABS: Hematocrit 27 % (35-47); Hemoglobin 8.9 g/dL (12.0-16.0); Mean Corpuscular HGB Conc 33 g/dL (31-36); Mean Corpuscular Hemoglobin 33 pg (27-31); Mean Corpuscular Volume 101 fL (80-97); Mean Platelet Volume 8.1 fL (7.4-10.4); Platelet Count 352 10^3/uL (150-450); Red Blood Count 2.68 10^6 /uL (3.70-4.87); Red Cell Distribution Width 15 % (10-15); White Blood Count 7.7 10^3/uL (3.5-10.8)
[2021-01-01 05:06] LABS: ABS Basophils 0.1 10^3/ul (0-0.2); ABS Lymphocytes 1.1 10^3/ul (1.0-4.8); ABS Monocytes 1.2 10^3/ul (0-0.8); ABS Neutrophils 5.3 10^3/ul (1.5-7.7); ABS Nucleated RBC 0.1 10^3/ul; Eosinophil % 0.5 %; Lymphocyte % 14.4 %; Nucleated Red Blood Cells % 0.8
[2021-01-01 05:07] LABS: Calcium 7.7 mg/dL (8.6-10.3); EGFR African American 226.1 (>60); EGFR Non-African American 186.9 (>60); Magnesium 1.9 mg/dL (1.9-2.7); Phosphorus 3.7 mg/dL (2.5-5.0); Potassium 3.6 mmol/L (3.5-5.0)
[2021-01-01] MEDS ORDERED: Potassium Chlor 20 meq TAB.ER PO ONE (05:19)
[2021-01-01] MEDS ORDERED: Magnesium Sulfate IV 1GM/100ML 1 GM/100 ML BAG IV ONE (05:20)
[2021-01-01] MEDS: Nicotine PATCH 21 MG/24 HR PATCH TRANSDERM SCH (05:38)
[2021-01-01] MEDS ORDERED: Lorazepam PYXIS KEY ONE ×3 (05:53→20:24)
[2021-01-01] MEDS: LORazepam 2 mg VIAL 1 ml IV PUSH PRN ×3 (05:55→20:32)
[2021-01-01 07:21] LABS: Macrocytosis 1+; Polychromasia 1+
[2021-01-01] MEDS: Enoxaparin 80 MG/0.8 ML SYR SUBCUT SCH ×2 (07:55→20:32)
[2021-01-01] MEDS: Saline FLUSH-CENTRAL 10 ML SYRINGE CENT\\PICC SCH ×2 (13:01→22:14)
[2021-01-01] MEDS ORDERED: Succinylcholine 200 mg VIAL 20 mg/ml 10 ml VIAL (200 mg) ONE (14:37)
[2021-01-01] MEDS ORDERED: Rocuronium 50 mg VIAL 10 mg/ml 5 ml VIAL (50 mg) ONE (14:37)
[2021-01-01] MEDS: Insulin GLARGINE 100 un/ml 10 ml VIAL SUBCUT SCH (20:33)
[2021-01-01] MEDS: Morphine 2 MG/ML SYRINGE IV PRN (22:03)
[2021-01-02 05:19] LABS: ABS Basophils 0.1 10^3/ul (0-0.2); ABS Lymphocytes 0.8 10^3/ul (1.0-4.8); ABS Monocytes 1.1 10^3/ul (0-0.8); ABS Neutrophils 5.7 10^3/ul (1.5-7.7); Eosinophil % 0.3 %; Hematocrit 26 % (35-47); Hemoglobin 8.7 g/dL (12.0-16.0); Lymphocyte % 10.4 %; Mean Corpuscular HGB Conc 34 g/dL (31-36); Mean Corpuscular Hemoglobin 34 pg (27-31); Mean Corpuscular Volume 100 fL (80-97); Nucleated Red Blood Cells % 0.1; Platelet Count 400 10^3/uL (150-450); Red Blood Count 2.57 10^6 /uL (3.70-4.87); Red Cell Distribution Width 15 % (10-15); White Blood Count 7.7 10^3/uL (3.5-10.8)
[2021-01-02 05:41] LABS: Calcium 7.7 mg/dL (8.6-10.3); Phosphorus 3.5 mg/dL (2.5-5.0); Potassium 3.8 mmol/L (3.5-5.0)
[2021-01-02] MEDS: Nicotine PATCH 21 MG/24 HR PATCH TRANSDERM SCH (05:58)
[2021-01-02] MEDS ORDERED: Lorazepam PYXIS KEY PRN (08:49)
[2021-01-02] MEDS: Enoxaparin 80 MG/0.8 ML SYR SUBCUT SCH ×2 (09:17→20:50)
[2021-01-02] MEDS: LORazepam 2 mg VIAL 1 ml IV PUSH PRN ×2 (09:17→20:11)
[2021-01-02] MEDS: Saline FLUSH-CENTRAL 10 ML SYRINGE CENT\\PICC SCH ×2 (14:17→23:55)
[2021-01-02] MEDS ORDERED: Furosemide 40 mg/4 ml IV VIAL ONE (14:41)
[2021-01-02] MEDS ORDERED: Furosemide 40 mg/4 ml IV VIAL IV ONE (15:00)
[2021-01-03] MEDS: Nicotine PATCH 21 MG/24 HR PATCH TRANSDERM SCH (05:47)
[2021-01-03 06:16] LABS: ABS Lymphocytes 0.9 10^3/ul (1.0-4.8); ABS Monocytes 1.3 10^3/ul (0-0.8); ABS Neutrophils 14.6 10^3/ul (1.5-7.7); Hematocrit 28 % (35-47); Hemoglobin 9.4 g/dL (12.0-16.0); Lymphocyte % 5.5 %; Mean Corpuscular HGB Conc 34 g/dL (31-36); Mean Corpuscular Hemoglobin 34 pg (27-31); Mean Corpuscular Volume 99 fL (80-97); Nucleated Red Blood Cells % 0.1; Platelet Count 483 10^3/uL (150-450); Red Cell Distribution Width 15 % (10-15); White Blood Count 16.9 10^3/uL (3.5-10.8)
[2021-01-03] MEDS ORDERED: Piperacillin/Tazobac ADVAN 3.375 GM in NS 0.9% 100 ml BAG 100 ML IV ONE (06:31)
[2021-01-03 06:33] LABS: Anion Gap 5 mmol/L (2-11); Blood Urea Nitrogen 17 mg/dL (6-24); CO2 Carbon Dioxide 29 mmol/L (22-32); Calcium 7.8 mg/dL (8.6-10.3); Chloride 99 mmol/L (101-111); EGFR African American 205.7 (>60); Glucose 107 mg/dL (70-100); Magnesium 1.8 mg/dL (1.9-2.7); Phosphorus 3.5 mg/dL (2.5-5.0); Potassium 3.3 mmol/L (3.5-5.0); Sodium 133 mmol/L (135-145)
[2021-01-03] MEDS ORDERED: Vancomycin 1,500 MG in NS 0.9% 250 ml 250 ML IVPB ONE (06:45)
[2021-01-03] MEDS ORDERED: Vancomycin per Pharmacy 1 EA NOTE FOLLOW UP SCH (07:00)
[2021-01-03] MEDS ORDERED: Zosyn per Pharmacy NOTE FOLLOW UP SCH (07:00)
[2021-01-03] MEDS: Enoxaparin 80 MG/0.8 ML SYR SUBCUT SCH ×2 (08:27→20:26)
[2021-01-03] MEDS ORDERED: Lorazepam PYXIS KEY ONE ×2 (11:16→16:05)
[2021-01-03] MEDS: LORazepam 2 mg VIAL 1 ml IV PUSH PRN ×2 (11:38→16:12)
[2021-01-03 11:41] LABS: Amylase < 10 U/L (29-103); Lipase 15 U/L (11.0-82.0)
[2021-01-03] MEDS: Saline FLUSH-CENTRAL 10 ML SYRINGE CENT\\PICC SCH ×2 (11:43→21:44)
[2021-01-03] MEDS ORDERED: Iohexol 300 (CONTRAST) 10 ML SDV IV ONE (12:10)
[2021-01-03 13:08] LABS: Urine Appearance Turbid; Urine Bilirubin Negative (Negative); Urine Blood 2+ (Negative); Urine Color Amber; Urine Glucose Negative (Negative); Urine Ketones Trace (Negative); Urine Nitrite Positive (Negative); Urine Protein 1+(30 mg/dL) (Negative); Urine Specific Gravity 1.025 (1.002-1.030); Urine Urobilinogen Negative (Negative)
[2021-01-03 13:12] LABS: Urine Amorphous Crystals Present (Absent); Urine Bacteria 1+ (Absent); Urine Red Blood Cell 3+(>10/hpf) (Absent); Urine Transitional Epithelial Present (Absent); Urine White Blood Cell 3+(>20/hpf) (Absent)
[2021-01-03] MEDS: ZOSYN 3.375 GM Q8H per EXTENDED INFUSION IV SCH ×2 (13:45→19:48)
[2021-01-03] MEDS: Vancomycin 1000 MG in NS 0.9% 250 ML IVPB SCH (16:12)
[2021-01-03] MEDS: LACTATED RINGERS 1000 ML BAG IV SCH (21:13)
[2021-01-04] MEDS: Vancomycin 1000 MG in NS 0.9% 250 ML IVPB SCH ×2 (00:36→09:26)
[2021-01-04] MEDS: ZOSYN 3.375 GM Q8H per EXTENDED INFUSION IV SCH ×3 (04:24→20:24)
[2021-01-04] MEDS: LACTATED RINGERS 1000 ML BAG IV SCH (05:05)
[2021-01-04] MEDS ORDERED: Vancomycin Trough Check NOTE FOLLOW UP ONE (07:30)
[2021-01-04 08:31] LABS: EGFR Non-African American 136.3 (>60)
[2021-01-04 08:47] LABS: Hematocrit 25 % (35-47); Hemoglobin 8.5 g/dL (12.0-16.0); Mean Corpuscular HGB Conc 34 g/dL (31-36); Mean Corpuscular Hemoglobin 33 pg (27-31); Mean Corpuscular Volume 99 fL (80-97); Mean Platelet Volume 7.9 fL (7.4-10.4); Platelet Count 530 10^3/uL (150-450); Red Blood Count 2.55 10^6 /uL (3.70-4.87); Red Cell Distribution Width 15 % (10-15); White Blood Count 16.8 10^3/uL (3.5-10.8)
[2021-01-04 08:50] LABS: Albumin 2.2 g/dL (3.2-5.2); Albumin/Globulin Ratio 0.8 (1-3); Calcium 7.6 mg/dL (8.6-10.3); Globulin 2.8 g/dL (2-4); Potassium 3.4 mmol/L (3.5-5.0); Total Bilirubin 0.6 mg/dL (0.2-1.0)
[2021-01-04 08:56] LABS: Vancomycin Trough 10.5 mcg/mL
[2021-01-04] MEDS ORDERED: Lorazepam PYXIS KEY ONE (09:17)
[2021-01-04 09:26] LABS: Magnesium 1.8 mg/dL (1.9-2.7); Phosphorus 3.1 mg/dL (2.5-5.0)
[2021-01-04] MEDS: LORazepam 2 mg VIAL 1 ml IV PUSH PRN (09:26)
[2021-01-04] MEDS: Enoxaparin 80 MG/0.8 ML SYR SUBCUT SCH ×2 (09:26→20:24)
[2021-01-04] MEDS: Nicotine PATCH 21 MG/24 HR PATCH TRANSDERM SCH (09:27)
[2021-01-04] MEDS: Saline FLUSH-CENTRAL 10 ML SYRINGE CENT\\PICC SCH (09:47)
[2021-01-04] MEDS: KCL 20 MEQ/100 ML IVPREMIX 20 MEQ/100 ML BAG IV SCH ×2 (09:47→11:58)
[2021-01-04] MEDS ORDERED: Magnesium Sulfate 2 gm BAG 2 GM/50 ML BAG IVPB ONE (10:05)
[2021-01-04 10:10] LABS: ABS Basophils 0.1 10^3/ul (0-0.2); ABS Eosinophils 0.1 10^3/ul (0-0.6); ABS Lymphocytes 0.7 10^3/ul (1.0-4.8); ABS Monocytes 1.3 10^3/ul (0-0.8); ABS Neutrophils 14.7 10^3/ul (1.5-7.7); Eosinophil % 0.4 %
[2021-01-04 10:12] LABS: RBC Morphology Normal (Normal)
[2021-01-04] MEDS ORDERED: TPN 24 HR with Dextrose 50% Water 500 ML, Amino Acid Infusion 10% 850 ML, Sterile Water... CENT\\PICC SCH (17:00)
[2021-01-04] MEDS: ceFAZolin VIAL 2 GM in NS 0.9% 100 ml BAG 100 ML IVPB SCH (17:28)
[2021-01-05] MEDS: Saline FLUSH-CENTRAL 10 ML SYRINGE CENT\\PICC SCH ×3 (00:08→22:39)
[2021-01-05] MEDS ORDERED: Lorazepam PYXIS KEY ONE ×2 (00:12→08:45)
[2021-01-05] MEDS: LORazepam 2 mg VIAL 1 ml IV PUSH PRN ×2 (00:22→09:26)
[2021-01-05] MEDS: ceFAZolin VIAL 2 GM in NS 0.9% 100 ml BAG 100 ML IVPB SCH ×2 (00:22→09:30)
[2021-01-05] MEDS: Albuterol 2.5mg/3 ml (0.083%) NEB.SOLN INH PRN ×2 (03:11→09:18)
[2021-01-05] MEDS ORDERED: Furosemide 40 mg/4 ml IV VIAL IV ONE (03:35)
[2021-01-05] MEDS: ZOSYN 3.375 GM Q8H per EXTENDED INFUSION IV SCH ×2 (03:45→13:26)
[2021-01-05] MEDS: Nicotine PATCH 21 MG/24 HR PATCH TRANSDERM SCH (05:29)
[2021-01-05 05:33] LABS: Hematocrit 25 % (35-47); Hemoglobin 8.3 g/dL (12.0-16.0); Mean Corpuscular HGB Conc 33 g/dL (31-36); Mean Corpuscular Hemoglobin 33 pg (27-31); Mean Corpuscular Volume 99 fL (80-97); Mean Platelet Volume 7.6 fL (7.4-10.4); Platelet Count 579 10^3/uL (150-450); Red Blood Count 2.52 10^6 /uL (3.70-4.87); Red Cell Distribution Width 15 % (10-15); White Blood Count 12.7 10^3/uL (3.5-10.8)
[2021-01-05 05:49] LABS: Calcium 7.6 mg/dL (8.6-10.3); EGFR African American 169.2 (>60); EGFR Non-African American 139.8 (>60); Magnesium 1.9 mg/dL (1.9-2.7); Phosphorus 1.9 mg/dL (2.5-5.0); Potassium 3.3 mmol/L (3.5-5.0)
[2021-01-05] MEDS ORDERED: Potassium Chlor 20 meq TAB.ER PO ONE (07:00)
[2021-01-05] MEDS: Enoxaparin 80 MG/0.8 ML SYR SUBCUT SCH ×2 (09:30→21:00)
[2021-01-05] MEDS ORDERED: Lorazepam PYXIS KEY PRN (11:21)
[2021-01-05] MEDS: diPHENhydraMINE IV 50 MG/ML 1 ml VIAL (BENADRYL) IV PRN ×2 (15:25→22:38)
[2021-01-05] MEDS: Meropenem 1 GM PREMIX 1 GM/50 ML BAG IV SCH ×2 (17:39→23:58)
[2021-01-06] MEDS ORDERED: Famotidine IV 10 MG/ML 2 ml VIAL (20 mg) IV SLOW PU ONE (00:27)
[2021-01-06] MEDS: diPHENhydraMINE IV 50 MG/ML 1 ml VIAL (BENADRYL) IV PRN ×2 (00:45→06:25)
[2021-01-06] MEDS: Nicotine PATCH 21 MG/24 HR PATCH TRANSDERM SCH (06:12)
[2021-01-06 06:53] LABS: Calcium 7.9 mg/dL (8.6-10.3); EGFR African American 199.6 (>60); EGFR Non-African American 164.9 (>60); Magnesium 1.9 mg/dL (1.9-2.7); Phosphorus 2.4 mg/dL (2.5-5.0); Potassium 3.6 mmol/L (3.5-5.0)
[2021-01-06] MEDS ORDERED: SALIVA SUBSTITUTE MT PRN (07:45)
[2021-01-06] MEDS: Enoxaparin 80 MG/0.8 ML SYR SUBCUT SCH ×2 (08:05→20:38)
[2021-01-06] MEDS: Meropenem 1 GM PREMIX 1 GM/50 ML BAG IV SCH ×3 (08:05→23:36)
[2021-01-06] MEDS ORDERED: CMCS - Oral Rinse (Biotene)(NF) 237 ML or 473 ML ORAL RINSE BTL MT PRN (08:20)
[2021-01-06] MEDS: Saline FLUSH-CENTRAL 10 ML SYRINGE CENT\\PICC SCH ×2 (10:07→23:50)
[2021-01-06 22:56] VITALS: BP 113/75
[2021-01-07 04:09] LABS: Hematocrit 24 % (35-47); Hemoglobin 7.9 g/dL (12.0-16.0); Mean Corpuscular HGB Conc 33 g/dL (31-36); Mean Corpuscular Hemoglobin 33 pg (27-31); Mean Corpuscular Volume 99 fL (80-97); Mean Platelet Volume 7.1 fL (7.4-10.4); Platelet Count 592 10^3/uL (150-450); Red Blood Count 2.38 10^6 /uL (3.70-4.87); Red Cell Distribution Width 15 % (10-15)
[2021-01-07 04:25] LABS: Calcium 7.9 mg/dL (8.6-10.3); EGFR African American 193.8 (>60); EGFR Non-African American 160.2 (>60); Magnesium 1.9 mg/dL (1.9-2.7); Potassium 3.5 mmol/L (3.5-5.0)
[2021-01-07] MEDS: Meropenem 1 GM PREMIX 1 GM/50 ML BAG IV SCH (08:42)
[2021-01-07] MEDS: Enoxaparin 80 MG/0.8 ML SYR SUBCUT SCH ×2 (08:42→21:22)
[2021-01-07] MEDS: Nicotine PATCH 21 MG/24 HR PATCH TRANSDERM SCH (09:37)
[2021-01-07] MEDS ORDERED: Morphine ORAL CONCENTRATE 5 MG/0.25 ML ORAL.SYRIN PO PRN (09:50)
[2021-01-07] MEDS: Saline FLUSH-CENTRAL 10 ML SYRINGE CENT\\PICC SCH ×2 (10:58→23:12)
[2021-01-07] MEDS: Morphine ORAL CONCENTRATE 5 MG/0.25 ML ORAL.SYRIN PO SCH ×3 (15:06→23:07)
[2021-01-07] MEDS: ceFAZolin VIAL 2 GM in NS 0.9% 100 ml BAG 100 ML IVPB SCH ×2 (15:40→23:07)
[2021-01-08] MEDS: Morphine ORAL CONCENTRATE 5 MG/0.25 ML ORAL.SYRIN PO SCH ×6 (02:57→22:56)
[2021-01-08] MEDS: Nicotine PATCH 21 MG/24 HR PATCH TRANSDERM SCH (05:26)
[2021-01-08] MEDS: ceFAZolin VIAL 2 GM in NS 0.9% 100 ml BAG 100 ML IVPB SCH ×3 (07:44→22:57)
[2021-01-08] MEDS: Enoxaparin 80 MG/0.8 ML SYR SUBCUT SCH ×2 (07:44→20:15)
[2021-01-08] MEDS: Saline FLUSH-CENTRAL 10 ML SYRINGE CENT\\PICC SCH (10:37)
[2021-01-08] MEDS: LORazepam 2 mg VIAL 1 ml IV PUSH PRN (16:59)
[2021-01-09] MEDS: Saline FLUSH-CENTRAL 10 ML SYRINGE CENT\\PICC SCH ×3 (01:16→23:38)
[2021-01-09] MEDS: Morphine ORAL CONCENTRATE 5 MG/0.25 ML ORAL.SYRIN PO SCH ×5 (03:13→20:02)
[2021-01-09] MEDS: Alteplase (CATHFLO) 2 MG VIAL IV ONE ×2 (03:14→03:28)
[2021-01-09] MEDS: Nicotine PATCH 21 MG/24 HR PATCH TRANSDERM SCH (06:10)
[2021-01-09] MEDS: ceFAZolin VIAL 2 GM in NS 0.9% 100 ml BAG 100 ML IVPB SCH ×3 (07:24→23:10)
[2021-01-09] MEDS: Enoxaparin 80 MG/0.8 ML SYR SUBCUT SCH ×2 (08:54→20:06)
[2021-01-09 18:06] LABS: Rapid COVID-19 Molecular Undetected (Undetected)
[2021-01-10] MEDS: Morphine ORAL CONCENTRATE 5 MG/0.25 ML ORAL.SYRIN PO SCH ×3 (00:02→08:01)
[2021-01-10] MEDS: Nicotine PATCH 21 MG/24 HR PATCH TRANSDERM SCH ×2 (06:18→10:34)
[2021-01-10] MEDS: ceFAZolin VIAL 2 GM in NS 0.9% 100 ml BAG 100 ML IVPB SCH (06:36)
[2021-01-10] MEDS: Enoxaparin 80 MG/0.8 ML SYR SUBCUT SCH (08:01)
[2021-01-10] MEDS: LORazepam 2 mg VIAL 1 ml IV PUSH PRN (10:44)
== END 2021-01-10 11:40 | disposition hospice, inpatient (51) | DRG 438 ==
LOC: ED 01:54 → SUATTDRO 10:22 → ICU 10:22 → MEDTELE 01-06 23:31
PROVIDERS: ADMIT Internal Medicine; ATTEND Hospitalist